=== PATIENT | female | born 1980 | race Caucasian/White ===

== ENCOUNTER → 2020-11-22 | Outpatient (CLI) | payer BC, OTHER ==
[~2020-11-22] MED LIST: ALPR.25 PO; ALPR.5 PO; ATEN50 PO; BUPR150T2 PO; CHOL10002 PO; CODBUTACEC PO; CYCL10 PO; DICL250 PO; ESZO3 PO; FLUO20 PO; HYDACE5325 PO; Hair, Skin & N1 EACH PO; IBUP800 PO; ISODICACE PO; LAMO100 PO; LAMO25 PO; LEVSOD50 PO; METO50ER PO; NAPR500 PO; NUCYNTA 100 MG; Omeprazole20 M1 PO; QUET200 PO; RANI150 PO; RXHYD5325 PO; RXOXYACE PO; SULTRIDS PO; TIZA4 PO; acidophilus
[2020-11-22 17:21] LABS: U Amphetamine Screen Not Detected; U Barbituate Screen Not Detected; U Benzodiazapine Screen DETECTED; U Buprenorphine Screen Not Detected; U Cannabinoids Screen Not Detected; U Cocaine Screen Not Detected; U Methadone Screen Not Detected; U Methamphetamine Screen Not Detected; U Opiates Screen DETECTED; U Oxycodone Screen DETECTED; U Phencyclidine Screen Not Detected; U Propoxyphene Screen Not Detected
[2020-12-01 13:10] LABS: 6-ACETYLMORPHINE Not Detected (.)
== END | disposition home or self-care (01) ==
LOC: LAB 15:05 → LAB SHORT 15:05
PROVIDERS: Physical Medicine & Rehabilitation
DX: M47.812 Spondylosis without myelopathy or radiculopathy, cervical region (principal); Z79.891 Long term (current) use of opiate analgesic
CPT/HCPCS: G0480

== ENCOUNTER 2021-03-01 10:47 | Emergency (ER) | payer BC ==
[~2021-03-01] VITALS: Ht 157.5 cm; Wt 65.8 kg
[2021-03-01 11:20] LABS: BASOPHILS PERCENT AUTO 0 % (0-2); EOSINOPHILS PERCENT AUTO 0 % (0-6); Hemoglobin 12.3 g/dL (11.5-16.0); IMMATURE GRAN ABSOLUTE AUTO 0.02 K/mm3 (0.00-0.10); IMMATURE GRAN PERCENT AUTO 0 % (0-1); LYMPHOCYTES ABSOLUTE AUTO 1.91 K/mm3 (0.84-5.20); LYMPHOCYTES PERCENT AUTO 24 % (21-46); MONOCYTES PERCENT AUTO 5 % (4-13); Mean Corpuscular HGB 31.1 pg (26.0-34.0); Mean Corpuscular HGB Conc 33.2 g/dL (31.5-36.5); Mean Corpuscular Volume 94 fL (80-100); Mean Platelet Volume 10.8 fL (9.1-12.4); NEUTROPHILS PERCENT AUTO 71 % (41-73); Platelet Count 249 K/mm3 (150-400); RDW Coefficient Variation 12.1 % (11.7-14.2); Red Blood Cell Count 3.95 M/mm3 (3.80-5.20); White Blood Cell Count 8.13 K/mm3 (4.00-11.30)
[2021-03-01] MEDS ORDERED: OXYC10ER (11:32)
[2021-03-01] MEDS ORDERED: BANOPHEN25 MG PO (11:32)
[2021-03-01] MEDS ORDERED: NARA2.5 (11:33)
[2021-03-01] MEDS ORDERED: MORPHINE SULFAT10 MG PO (11:33)
[2021-03-01] MEDS ORDERED: DESVENLAFAXINE50 MG PO (11:34)
[2021-03-01] MEDS ORDERED: MELATONIN5 M1 PO (11:35)
[2021-03-01] MEDS ORDERED: ACET500 (11:35)
[2021-03-01 11:42] LABS: Albumin, Blood 3.8 g/dL (3.4-5.0); Albumin/Globulin Ratio 1.2 (0.8-1.8); Bilirubin, Total 0.2 mg/dL (0.1-1.0); Bun/Creatinine Ratio 15.1 (12.0-20.0); Calcium, Blood 8.9 mg/dL (8.5-10.1); Creatinine, Blood 1.06 mg/dL (0.40-1.00); Globulin, Blood 3.2 g/dL (2.2-4.0); Potassium, Blood 4.2 mmol/L (3.5-5.5)
== END 2021-03-01 14:20 | disposition home or self-care (01) ==
LOC: ER 10:47
PROVIDERS: Emergency Medicine
DX: I95.1 Orthostatic hypotension (principal); E86.0 Dehydration; Z88.8 Allergy status to other drugs, medicaments and biological substances; Z79.899 Other long term (current) drug therapy
CPT/HCPCS: 36415; 80053; 84484; 85025; 93005; 93010; 99284-25; J7030

== ENCOUNTER → 2022-08-02 | Outpatient (CLI) | payer BC ==
[~2022-08-02] MED LIST changes: +ACET500; +BANOPHEN25 MG PO; +DESVENLAFAXINE50 MG PO; +MELATONIN5 M1 PO; +MORPHINE SULFAT10 MG PO; +NARA2.5; +OXYC10ER
[2022-08-02 10:18] LABS: Source, Urine Clean Catch
[2022-08-02 11:48] LABS: Appearance, Urine Hazy (Clear); Bilirubin, Urine Neg (Neg); Blood, Urine Neg (Neg); Color, Urine Yellow (P-Yellow); Glucose Qualitative, Urine Neg (Neg); Ketones, Urine Neg (Neg); Leukocyte Esterase, Urine 1+ (Neg); Nitrite, Urine Pos (Neg); Protein, Urine 1+ (Neg); Specific Gravity, Urine 1.025 (1.003-1.022); Urobilinogen, Urine NORM (Normal)
[2022-08-02 12:21] LABS: Bacteria Many /hpf; Mucus Light (0-Heavy); Red Blood Cells, Urine Not Seen /hpf (0-2); Squamous Epithelial Cells Few /hpf (Few)
== END | disposition home or self-care (01) ==
LOC: LAB 10:12 → LAB SHORT 10:12
PROVIDERS: Family Medicine
DX: R30.0 Dysuria (principal)
CPT/HCPCS: 81001; 87077; 87086; 87186